=== PATIENT | male | born 1955 | race Caucasian/White ===

== ENCOUNTER 2018-07-30 07:01 | Inpatient (IN) | payer BC ==
[2018-07-30] VITALS (300 sets, daily range): BP systolic 116–172; BP diastolic 75–109; PULSE 55–70; TEMP 63–98.4; O2SAT 84–100
[~2018-07-30] VITALS: Ht 177.8 cm; Wt 100.0 kg
[~2018-07-30 07:01] MED LIST: ANTIVERT 25MG25 MG PO; CEPHALEXIN500 M1 PO; LORTAB 5/500 501 TAB PO; NO HOME MEDICATIONS; PHENERGAN 25 TA25 MG PO; VALIUM 5MG T5 MG/TAB PO
[2018-07-30] MEDS ORDERED: ASPIRIN E.C. 8181 MG PO (07:35)
[2018-07-30] MEDS ORDERED: TURMERIC500 MG PO (07:52)
[2018-07-30] MEDS ORDERED: PHARMASSURE CHE30 MG PO (07:54)
[2018-07-30] MEDS ORDERED: ZIAC 5/6.25MG T1 TAB PO (07:55)
[2018-07-30 08:01] LABS: HEMATOCRIT 44.6 % (42.0-52.0); HEMOGLOBIN 15.3 g/dl (13.5-18.0); MEAN CELL VOLUME 95 fl (80.0-100.0); MEAN CORPUSCULAR HEMOGLOBIN 32 pg (27.0-31.0); MEAN CORPUSCULAR HGB CONC 34 g/dl (33.0-37.0); MEAN PLATELET VOLUME 9.5 fl (7.4-10.4); PLATELET COUNT 273 K/mm3 (130-400); RED BLOOD COUNT 4.72 M/mm3 (4.20-5.60); REDCELL DISTRIBUTION WIDTH-CV 13.2 % (11.5-14.5)
[2018-07-30 08:07] LABS: PROTHROMBIN TIME 11.7 SECONDS (9.7-12.8)
[2018-07-30 08:15] LABS: CALCIUM 9.1 mg/dL (8.4-10.2); CREATININE, serum 1.19 mg/dL (0.66-1.25); POTASSIUM 4.3 mmol/L (3.4-5.0)
[2018-07-31] VITALS (176 sets, daily range): BP systolic 122–141; BP diastolic 78–82; PULSE 73–74; TEMP 98–98.1; O2SAT 87–100
[2018-07-31 04:28] LABS: CALCIUM 8.9 mg/dL (8.4-10.2); CREATININE, serum 1.18 mg/dL (0.66-1.25); POTASSIUM 4.6 mmol/L (3.4-5.0)
[2018-07-31] MEDS ORDERED: BRILINTA90 MG PO (12:13)
[2018-07-31] MEDS ORDERED: NITROSTAT0.4 MG/TAB SL (12:14)
[2018-07-31] MEDS ORDERED: PRAVACHOL 20MG20 MG PO (12:15)
== END 2018-07-31 13:35 | disposition home or self-care (01) | DRG 246 ==
LOC: COL.CAR 07:01 → ICU 11:49 → COL.CAR 12:00 → ICU 12:00
PROVIDERS: Internal Medicine Cardiovascular Disease
PROC: B2111ZZ Fluoroscopy of Multiple Coronary Arteries using Low Osmolar Contrast (ICD-10-PCS; principal; 2018-07-30)
PROC: 027037Z Dilation of Coronary Artery, One Artery with Four or More Drug-eluting Intraluminal Devices, Percutaneous Approach (ICD-10-PCS; 2018-07-30)
DX: I25.10 Atherosclerotic heart disease of native coronary artery without angina pectoris (principal); I10 Essential (primary) hypertension; E78.01 Familial hypercholesterolemia; J44.9 Chronic obstructive pulmonary disease, unspecified; E78.5 Hyperlipidemia, unspecified; F17.210 Nicotine dependence, cigarettes, uncomplicated
CPT/HCPCS: C1725; C1769; C1874; C1887; C9600; J1644; J2250; J3010; J7040; Q9967

== ENCOUNTER 2018-08-23 07:35 | Day surgery (SDC) | payer BC ==
[~2018-08-23] VITALS: Ht 177.8 cm; Wt 100.0 kg
[2018-08-23] VITALS (450 sets, daily range): BP systolic 116–153; BP diastolic 76–93; PULSE 55–69; TEMP 97.1–98.2; O2SAT 76–100
[~2018-08-23 07:35] MED LIST changes: +ASPIRIN E.C. 8181 MG PO; +BRILINTA90 MG PO; +NITROSTAT0.4 MG/TAB SL; +PHARMASSURE CHE30 MG PO; +PRAVACHOL 20MG20 MG PO; +TURMERIC500 MG PO; +ZIAC 5/6.25MG T1 TAB PO
[2018-08-23 08:33] LABS: HEMATOCRIT 42.5 % (42.0-52.0); HEMOGLOBIN 14.5 g/dl (13.5-18.0); MEAN CELL VOLUME 94 fl (80.0-100.0); MEAN CORPUSCULAR HEMOGLOBIN 32 pg (27.0-31.0); MEAN CORPUSCULAR HGB CONC 34 g/dl (33.0-37.0); MEAN PLATELET VOLUME 9.6 fl (7.4-10.4); PLATELET COUNT 291 K/mm3 (130-400); RED BLOOD COUNT 4.54 M/mm3 (4.20-5.60); REDCELL DISTRIBUTION WIDTH-CV 12.8 % (11.5-14.5)
[2018-08-23 08:37] LABS: PROTHROMBIN TIME 10.8 SECONDS (9.7-12.8)
[2018-08-23 08:40] LABS: CALCIUM 9.6 mg/dL (8.4-10.2); CREATININE, serum 1.26 mg/dL (0.66-1.25); POTASSIUM 4.5 mmol/L (3.4-5.0)
[2018-08-23] MEDS ORDERED: BRILINTA90 MG PO (08:41)
[2018-08-23] MEDS ORDERED: EPA FISH OIL1 SGL PO (08:42)
[2018-08-23] MEDS ORDERED: NETTLE LEAF PO (08:43)
[2018-08-23] MEDS ORDERED: GALZIN25 MG PO (08:45)
[2018-08-23] MEDS ORDERED: TURMERIC500 MG PO (08:46)
[2018-08-23] MEDS ORDERED: PRAVACHOL 20MG20 MG PO (08:48)
[2018-08-23] MEDS ORDERED: NITROSTAT0.4 MG/TAB SL (08:49)
[2018-08-23] MEDS ORDERED: OSTEO-BI-FLEX 21 TAB PO (08:50)
[2018-08-23] MEDS ORDERED: PHARMASSURE SA160 MG PO (08:51)
[2018-08-23] MEDS ORDERED: [UNRECOGNIZED DRUG - OTHER] PO (09:14)
[2018-08-24] VITALS (354 sets, daily range): BP systolic 114–136; BP diastolic 71–75; PULSE 62–73; TEMP 97.6–97.9; O2SAT 88–100
[2018-08-24 06:16] LABS: BASO % 0.3 % (0.0-2.0); EOS # 0.2 (0.0-0.7); EOS % 2.9 % (0-4.0); GRAN # 4.9 (1.4-6.5); GRAN % 66.6 % (42.2-75.2); HEMATOCRIT 41.8 % (42.0-52.0); HEMOGLOBIN 14.1 g/dl (13.5-18.0); LYMPH # 1.5 (1.2-3.4); LYMPH % 19.9 % (20.0-51.0); MEAN CELL VOLUME 94 fl (80.0-100.0); MEAN CORPUSCULAR HEMOGLOBIN 32 pg (27.0-31.0); MEAN CORPUSCULAR HGB CONC 34 g/dl (33.0-37.0); MEAN PLATELET VOLUME 9.4 fl (7.4-10.4); MONO # 0.7 (0.1-0.6); MONO % 9.9 % (1.7-9.3); PLATELET COUNT 262 K/mm3 (130-400); RED BLOOD COUNT 4.44 M/mm3 (4.20-5.60)
[2018-08-24 06:31] LABS: CALCIUM 9.3 mg/dL (8.4-10.2); CREATININE, serum 1.07 mg/dL (0.66-1.25); POTASSIUM 4.5 mmol/L (3.4-5.0)
== END 2018-08-24 11:04 | disposition home or self-care (01) ==
LOC: COL.CAR 07:35 → ICU 10:23 → COL.CAR 08-24 11:04 → ICU 08-24 11:04
PROVIDERS: Internal Medicine; Nurse Practitioner
DX: I25.10 Atherosclerotic heart disease of native coronary artery without angina pectoris (principal); I73.9 Peripheral vascular disease, unspecified; I10 Essential (primary) hypertension; E78.5 Hyperlipidemia, unspecified; J44.9 Chronic obstructive pulmonary disease, unspecified; E78.00 Pure hypercholesterolemia, unspecified; F17.210 Nicotine dependence, cigarettes, uncomplicated; Z95.5 Presence of coronary angioplasty implant and graft; Z23 Encounter for immunization
CPT/HCPCS: OP; C9600; J1644; J2250; J3010; Q9967

== ENCOUNTER 2018-10-25 12:59 | Outpatient (RCR) | payer BC ==
[~2018-10-25 12:59] MED LIST changes: +EPA FISH OIL1 SGL PO; +GALZIN25 MG PO; +NETTLE LEAF PO; +OSTEO-BI-FLEX 21 TAB PO; +PHARMASSURE SA160 MG PO; +[UNRECOGNIZED DRUG - OTHER] PO
== END 2018-10-25 15:00 | disposition home or self-care (01) ==
LOC: COL.CR 12:59
DX: Z48.812 Encounter for surgical aftercare following surgery on the circulatory system (principal); Z95.5 Presence of coronary angioplasty implant and graft

== ENCOUNTER 2019-01-24 15:15 | Outpatient (RCR) | payer SELFPAY | END 2019-01-25 | disposition still patient (30) | LOC: COL.CR | DX: Z02.89 Encounter for other administrative examinations (principal) ==

== ENCOUNTER 2019-04-25 14:43 | Outpatient (RCR) | payer SELFPAY | END 2019-04-28 | disposition home or self-care (01) | LOC: COL.CR | DX: Z01.89 Encounter for other specified special examinations (principal) ==

== ENCOUNTER 2019-07-29 16:48 | Outpatient (RCR) | payer SELFPAY | END 2019-07-31 | disposition home or self-care (01) | LOC: COL.CR | DX: Z02.89 Encounter for other administrative examinations (principal) ==

== ENCOUNTER 2019-10-26 14:01 | Outpatient (RCR) | payer SELFPAY | END 2019-10-30 | disposition home or self-care (01) | LOC: COL.CR | DX: Z02.89 Encounter for other administrative examinations (principal) ==

== ENCOUNTER 2019-12-26 15:42 | Outpatient (RCR) | payer SELFPAY | END 2020-01-29 | disposition home or self-care (01) | LOC: COL.CR | DX: Z02.89 Encounter for other administrative examinations (principal) ==

== ENCOUNTER 2020-06-06 16:06 | Outpatient (RCR) | payer SELFPAY | END 2020-06-07 | disposition home or self-care (01) | LOC: COL.CR | DX: Z02.89 Encounter for other administrative examinations (principal) ==

== ENCOUNTER 2020-09-05 15:14 | Outpatient (RCR) | payer SELFPAY | END 2020-09-09 | disposition home or self-care (01) | LOC: COL.CR | DX: Z02.89 Encounter for other administrative examinations (principal) ==

== ENCOUNTER 2020-12-07 14:47 | Outpatient (RCR) | payer SELFPAY | END 2020-12-09 | disposition home or self-care (01) | LOC: COL.CR | DX: Z02.89 Encounter for other administrative examinations (principal) ==

== ENCOUNTER 2021-03-08 17:05 | Outpatient (RCR) | payer SELFPAY | END 2021-03-10 | disposition home or self-care (01) | LOC: COL.CR | DX: Z02.89 Encounter for other administrative examinations (principal) ==

== ENCOUNTER → 2021-04-18 | Outpatient (CLI) | payer OTHER, BC | LOC: ZCOL.LAB 16:22 | DX: T30.0 Burn of unspecified body region, unspecified degree (principal); L76.82 Other postprocedural complications of skin and subcutaneous tissue ==

== ENCOUNTER 2022-01-08 14:37 | Outpatient (RCR) | payer SELFPAY | END 2022-01-09 | LOC: COL.CR | DX: Z29.8 Encounter for other specified prophylactic measures (principal) ==

== ENCOUNTER 2022-02-10 07:49 | Outpatient (RCR) | payer SELFPAY | END 2022-03-11 | LOC: COL.CR | DX: Z29.8 Encounter for other specified prophylactic measures (principal) ==

== ENCOUNTER 2022-03-12 01:48 | Outpatient (RCR) | payer SELFPAY | END 2022-04-10 | LOC: COL.CR | DX: Z29.8 Encounter for other specified prophylactic measures (principal) ==

== ENCOUNTER → 2023-11-05 | Outpatient (CLI) | payer BC, MEDICARE | LOC: COL.RAD 12:06 | DX: R97.20 Elevated prostate specific antigen [PSA] (principal) | CPT/HCPCS: A9575 ==